=== PATIENT | female | born 2005 | race Two or more races ===

== ENCOUNTER 2025-04-26 10:46 | Outpatient (AMB) | payer MEDICAID, SELFPAY ==
[2025-04-26 11:20] VITALS: BP 104/69; PULSE 63; RESP 14; TEMP 36.6; O2SAT 98; BMI 19.8
--- NOTE | 2025-04-26 11:20 | AMB.OBINITIA ---
Vital Signs 04/26/25 11:20 Height 1.66 m Height Method Stated Weight 54.601 kg Weight Measurement Method Standing Scale BMI 19.8 BP 104/69 Blood Pressure Source Automatic Cuff Blood Pressure Location Left Upper Arm Position Sitting Respiration 14 Pulse 63 Pulse Source Monitor Temp 97.9 F Temp Source Oral Pulse Oximetry (%) 98 Oxygen Delivery Method Room Air Allergies/Home Meds Allergies & Medications Allergies No Known Allergies Allergy (Verified 04/26/25 11:21) Medication Reconciliation ondansetron HCl 8 mg tablet 8 mg PO TID PRN nausea and vomiting #30 tabs 04/26/25 [Rx] Intake Visit Data Collection New Patient or Established: Established Patient (seen at [facility] within 3 years) Reason for Visit:: INITIAL CARE Seen by Clinical Staff ONLY (RN/MA): 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 1. Little interest or pleasure in doing things: not at all 2. Feeling down, depressed, or hopeless: not at all Total score: 0 PHQ-9 3. Trouble falling or staying asleep, or sleeping too much: Not at all 4. Feeling tired or having little energy: Not at all 5. Poor appetite or overeating: Not at all 6. Feeling bad about yourself - or that you are a failure or have let yourself or your family down: Not at all 7. Trouble concentrating on things, such as reading the newspaper or watching television: Not at all 8. Moving or speaking so slowly that other people could have noticed? - Or the opposite - being so fidgety or restless that you have been moving around a lot more than usual: not at all 9. Thoughts that you would be better off or of hurting yourself in some way: Not at all Total score: 0 Source: Developed by Drs. Junito Savage, Tiffany Green, Cade Rodriguez and colleagues, with an educational deni from [employer]. Depression screen completed yes Social History Living Situation History Marital Status: Life Partner Lives With: Family Housing: House Tobacco History Smoking Status: Never smoker Second Hand Smoke Exposure: No Alcohol History Alcohol Intake: Never Domestic Abuse History Do You Feel Safe at Home: Yes History of Present Illness HPI Narrative 19-year-old 1 para 0 for OBI. Patient has an initial appointment. Tracey. Labs. January 10, 2025. Patient also reported that she had 2 days of spotting January 28. Her due date is October 17, 2025. Complains of increased nausea and vomiting. Denies bleeding, leaking. Denies existence of chronic medical health issues. Denies surgeries. Denies social habits. Patient is here with her . Both patient and are very excited. 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 Last period January 10, 2025. This gives EDC October 17, 2025. Patient had spotting for 2 days January 28. Complains of increased nausea and vomiting. She is taking vitamins. Patient denies leaking, denies bleeding, denies cramps OBI today. Schedule appointment with Dr. Polo for MFM sono. OB panel with NIPT and AFP carrier screens today. I gave her prescription for Zofran 8 mg 3 times daily and a couple refills. And discussed comfort measures for nausea and vomiting and patient can continue prenatals. Discussed SAB precautions. Menstrual History Menstrual reliability: definite Flow: heavy Menstrual regularity: irregular Monthly: No Age at menarche: 13 On control pills at conception: No Date of positive home test: 03/17/25 Associated symptoms (LMP): Reports fatigue and breast tenderness OB History : 1 # of Living Children: 0 Infection History & Risk Evaluation History of STDs: none Genetic Screening & History Genetic Screening/Teratology Counseling - Includes patient, baby's father, or anyone in either family with: 1. Patient's age 35 years or older as of estimated date of delivery: No 2. Thalassemia (Gibraltarian, Arabic, Mediterranean, or Background); MCV less than 80: No 3. Neural Tube Defect (Meningomyelocele, Spina Bifida, or Anencephaly): No 4. Congenital Heart Defect: No 5. Down Syndrome: No 6. Krishna-Sachs (Ashkenazi Evangelical, Cajun, Mongolian Citizen Of [place]): No 7. Jasmyne Disease (Ashkenazi Evangelical): No 8. Familial Dysautonomia (Ashkenazi Evangelical): No 9. Sickle Cell Disease or Trait (): No 10. Hemophilia or other blood disorders: No 11. Muscular Dystrophy: No 12. Cystic Fibrosis: No 13. Vadim's Chorea: No 14. Mental Retardation/Autism: No 15. Other inherited genetic or chromosomal disorder: No 16. Maternal Metabolic Disorder (EG,TYPE 1 Diabetes, PKU): No 17. Patient or baby's father had a child with defects not listed above: No 18. Recurrent loss or a stillbirth: No 19. Medications (including supplements, vitamins, herbs or otc drugs)/illicit/recreational drugs/alcohol since last menstrual period: No 20. Any other: No Infection History 1. Live with someone with TB or exposed to TB: No 2. Rash or viral illness since last menstrual period: No 3. Hepatitis B,C: No Other (see comments) Source: [employer] Review of Systems Review of Systems Systems Reviewed: All systems reviewed, normal except as documented Constitutional Constitutional: Reports fatigue Endocrine Endocrine: Reports fatigue Exam General Limitations: no limitations General Appearance: alert, in no apparent distress, comfortable, cooperative, healthy appearing, well developed and well groomed Head Head exam: atraumatic, normocephalic and normal inspection Chest Chest inspection: Present normal inspection and symmetric chest wall rise Resp Respiratory exam: Present normal lung sounds bilaterally Card Cardiovascular exam: Present regular rate, normal rhythm and normal heart sounds Abdominal Abdominal exam: Present soft and normal bowel sounds Psych Psychiatric exam: Present normal affect and normal mood Office Procedures OB Clinic LOC & Office Proc's Nursing/Assessment Patient Status: Established Patient OB Clinic Nursing Assessment: Medication Reconciliation, Update PMH in EMR and Vital Signs OB Clinic Coordination of Care: Complex Care and Chronic Disease 1-5, Consent,records obtained, informed consent, Education Simp Pt/Fam, Lab and Imaging orders, Results/Orders obtained and Staff clarify orders Special Needs: Heart tones Established Patient Charge Established Patient Point Assignment: 135 Established Patient Point Charge: EP Level 4 (120-155) Assessment & Plan Diagnosis / Problem List (1) Encounter for supervision of high risk in second trimester, antepartum: Status: Acute Plan Continue vitamins. I gave patient prescription for Zofran 8 mg 3 times daily for nausea and vomiting. Discussed comfort measures. Discussed SAB precautions. Schedule with Dr. Polo for [facility] ana. An OB panel today with NIPT, AFP and carrier screening. Return in 4 weeks OB check Additional Plan Follow Up: 4 Weeks (OBC)
== END 2025-04-26 11:37 | disposition home or self-care (01) ==
LOC: HODSOBC 10:46
PROVIDERS: Supervising Provider Advanced Practice Midwife; Visit Provider Advanced Practice Midwife
DX: O09.892 Supervision of other high risk pregnancies, second trimester (principal); O21.9 Vomiting of pregnancy, unspecified; Z3A.15 15 weeks gestation of pregnancy
CPT/HCPCS: 99214; G0463

== ENCOUNTER 2025-05-29 09:29 | Outpatient (AMB) | payer MEDICAID, SELFPAY ==
[2025-05-29 10:09] VITALS: BP 107/72; PULSE 76; RESP 17; TEMP 36.7; O2SAT 98
--- NOTE | 2025-05-29 10:09 | OBCLNT_ITS ---
Vital Signs 05/29/25 10:09 Height 1.66 m Height Method Measured Weight 55.338 kg Weight Measurement Method Standing Scale BMI 20.0 BP 107/72 Blood Pressure Source Automatic Cuff Blood Pressure Location Right Upper Arm Position Sitting Respiration 17 Pulse 76 Pulse Source Monitor Temp 98.0 F Temp Source Temporal Artery Scan Pulse Oximetry (%) 98 Oxygen Delivery Method Room Air Allergies/Home Meds Allergies & Medications Allergies No Known Allergies Allergy (Verified 04/26/25 11:21) Intake Visit Data Collection New Patient or Established: Established Patient (seen at [facility] within 3 years) Reason for Visit:: OBC FOLLOW UP Handbag Parts Cutter Required: No Do You Feel Safe at Home: Yes Authorities Contacted: N/A PCP or OBGYN visit in last 3 months: Yes Pain Present Currently: No Smoking Status Smoking Status: Never smoker Questionnaires PHQ-9 PHQ-2 Over the last 2 weeks, how often have you been bothered by any of the following problems? 1. Little interest or pleasure in doing things: not at all PHQ-9 8. Moving or speaking so slowly that other people could have noticed? - Or the opposite - being so fidgety or restless that you have been moving around a lot more than usual: not at all Source: Developed by Drs. Junito Savage, Tiffany Green, Cade Rodriguez and colleagues, with an educational deni from [employer]. 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 Last period January 10, 2025. This gives EDC October 17, 2025. Patient had spotting for 2 days January 28. Complains of increased nausea and vomiting. She is taking vitamins. Patient denies leaking, denies bleeding, denies cramps OBI today. Derrick love appointment with Dr. Polo for MFM ana. OB panel with NIPT and AFP carrier screens today. I gave her prescription for Zofran 8 mg 3 times daily and a couple refills. And discussed comfort measures for nausea and vomiting and patient can continue prenatals. Discussed SAB precautions. 05/29/25 -?--?-?-?-?-?-?-?-?-?-?-?- 19w 6d 55.338 kg 107/72 absent unknown 18 145 active light FM, denies VB,LOF, No UC. continued Nausea, need refill aFP today. MFM pending. Discussed SAB precautions. Return in 4 weeks OB check. Refilled Zofran. Continue with prenatals BHUMI Calculator Estimated Delivery Date Method Current WG Current Estimate 10/17/25 LMP (Certain) 19w 6d Notes Visit Date: 05/29/25 Last Updated by: Ritu Crawford CNM OB panel: O+,abs-, rpr;;nr, rub imm, hbsag-, HV-, HC-, GC/CT-, ,SMA-, A1: 5.5, NIPT: BOY/-, Cf- Visit Date: 04/26/25 Last Updated by: Ritu Crawford CNM 19 yo . LMP: 01/10/25. EDC: 10/17/24GC/CT-,, TSH-,A1: 5.4 Office Procedures OB Clinic LOC & Office Proc's Nursing/Assessment Patient Status: Established Patient OB Clinic Nursing Assessment: Medication Reconciliation, Update PMH in EMR and Vital Signs OB Clinic Coordination of Care: Complex Care and Chronic Disease 1-5, Education Complex Pt/Fam, Consent,records obtained, informed consent, 1 Ins Authorization, Lab and Imaging orders and Results/Orders obtained Special Needs: Heart tones Established Patient Charge Established Patient Point Assignment: 145 Established Patient Point Charge: EP Level 4 (120-155) Assessment & Plan Diagnosis / Problem List (1) Encounter for supervision of high risk in second trimester, antepartum: Status: Acute Plan Discussed SAB precautions. aFP today. Follow-up in [facility] sono. Refill Zofran 8 mg every 8. Discussed comfort measures for nausea and vomiting. Return in 4 weeks OB check Additional Plan Follow Up: 4 Weeks (OBC)
== END 2025-05-29 10:30 | disposition home or self-care (01) ==
LOC: HODSOBC 09:29
PROVIDERS: Supervising Provider Advanced Practice Midwife; Visit Provider Advanced Practice Midwife
DX: O09.92 Supervision of high risk pregnancy, unspecified, second trimester (principal); Z3A.19 19 weeks gestation of pregnancy
CPT/HCPCS: 99214; G0463

== ENCOUNTER 2025-06-13 18:58 | Emergency (ER) | payer MEDICAID, SELFPAY ==
--- NOTE | 2025-06-13 19:07 | EDNOTE_ITS ---
ED Abdominal Pain RME/HPI General Chief Complaint: OB/Uterine Contractions Stated complaint: PREG 17WKS, LOWER ABD PAIN Time seen by provider: 06/13/25 19:31 Arrival date/time: 06/13/25 18:58 RME / HPI RME / HPI narrative: See [facility] for Dr. Mondragon's HPI documentation. Related Data Previous Rx's ?Medication ?Instructions ?Recorded ondansetron HCl 8 mg tablet 8 mg PO TID PRN nausea and 05/29/25 vomiting #30 tabs Allergies Allergy/AdvReac Type Severity Reaction Status Date / Time No Known Allergies Allergy Verified 06/13/25 19:03 Review of Systems Review of Systems Systems Reviewed: All systems reviewed, normal except as documented Past Medical History Past Medical History CARDIAC: Negative Congestive Heart Failure RESPIRATORY: Negative Chronic Obstructive Pulmonary Disease (COPD) GENITOURINARY: Negative Renal Disease ENDOCRINE: Negative Diabetes Mellitus Type 1 or Diabetes Mellitus Type 2 PSYCHO/SOCIAL: Positive Anxiety Social History SMOKING STATUS: Never smoker SECOND HAND EXPOSURE: No SUBSTANCE USE: does not use ED Exam Narrative Physical exam: See [facility] for Dr. Mondragon's physical exam documentation. Course Quality Measures none Orders Category Date Time Status Bedside COVID-19 Antigen Test NOW Care 06/13/25 19:31 Completed Bedside Influenza A&B Antigen Test NOW Care 06/13/25 19:31 Completed US OB >= 14 weeks Fetus Stat Exams 06/13/25 19:32 Completed Beta HCG,Quantitative Stat Lab 06/13/25 19:50 Completed Bilirubin,Direct Stat Lab 06/13/25 19:50 Completed CBC Stat Lab 06/13/25 19:50 Completed CMP [Comprehensive Metabolic Panel] Stat Lab 06/13/25 19:50 Completed Influenza A & B Rapid Panel Stat Lab 06/13/25 20:18 Completed Magnesium Stat Lab 06/13/25 19:50 Completed Rh Testing Only Stat Lab 06/13/25 19:50 Completed TSH [Thyroid Stimulating Hormone] Stat Lab 06/13/25 19:50 Completed UA, C/S IF [Urinalysis, C/S if Indicated] Stat Lab 06/13/25 20:41 Completed Ondansetron Odt [Zofran Odt] Med 06/13/25 19:31 Discontinued 4 mg PO X1 ONE Vital Signs Vital signs: Vital Signs Temperature 98.6 F 06/13/25 19:52 Pulse Rate 64 06/13/25 19:52 Respiratory Rate 16 06/13/25 19:52 Blood Pressure 109/79 06/13/25 19:52 Pulse Oximetry (%) 96 06/13/25 19:52 Oxygen Delivery Method Room Air 06/13/25 19:52 Abdominal Pain MDM MDM Narrative MDM Narrative:: This section includes all my notes and documentations, including HPI, PE, and ED course. Cricket Mondragon MD HPI: 19yo female who is ~17 weeks here with lower abdominal pain and nausea for the last 24 hours. No radiation or migration. No vomiting or vaginal bleeding. No other complaints reported. ROS: All negative except as documented in HPI. Physical Exam: General: Alert and oriented. No acute distress when remaining still. Eyes: Conjunctivae and lids clear. ENT: No nasal congestion. Neck: Supple. Heart: RRR. Lungs: No respiratory distress. Good air movement. No rhonchi, wheezing, rales. Abdomen: Soft and nontender. Normal bowel sounds. No distension. No rebound or guarding. Back: No CVA tenderness. Skin: Warm and dry. Neuro: Alert and oriented X 3. I reviewed all diagnostic test results. My review of the US report is 18 4/7 week IUP. Blood tests and urine tests remarkable for beta-hCG 81443. COVID/Influenza negative. At this point, diagnoses include: Threatened miscarriage Treatment here included: Tono Recommended expectant management. Based on my best medical judgment, made decision no further evaluation or treatment indicated at this time. Patient understands and agrees to the discharge instructions customized and printed, see below. Discharge Instructions from Dr. Mondragon printed for you: 1. After evaluation, your baby is doing well with good cardiac activity. 2. Based on ultrasound today, gestational age is 18 4/7 weeks. 3. Only time will tell what will happen. If your symptoms, including bleeding, worsen, you can have a miscarriage. If your symptoms stop, you can have successful . 4. If you do have a miscarriage, we won't be able to save your baby. Under 20-24 weeks, we can't save the baby. 5. No sexual activity until cleared by a doctor taking care of you. 6. See a private doctor on 06/25/2025 for recheck. Ask to review all test results and official radiology reports, to make sure you receive all necessary follow-ups and monitoring. 7. Seek immediate medical care with intolerable pain, extremely heavy vaginal bleeding (soaking more than 3 pads per hour), or with any concerns. Cricket Mondragon MD Patient data External records reviewed:: [facility] previous records (Per chart review, patient has no relevant previous ED visits.) Clinical information provided by:: patient Social determinants that could affect healthcare access:: none Patient has the following chronic illnesses:: none How is presenting disease/condition affected by chronic disease/condition?: no chronic disease Evaluation data The following diagnostics were reviewed and interpreted by me:: lab results and radiology exam(s) Lab and/or radiology exams considered but not ordered:: none Interpretation Summary: I reviewed all diagnostic test results. My review of the US report is 18 4/7 week IUP. Blood tests and urine tests remarkable for beta-hCG 72587. COVID/Influenza negative. Medications / Prescriptions Medications or Prescriptions considered but not ordered:: none Medication administrations:: Medication Administration History Discontinued Medications Ondansetron HCl (Ondansetron Odt 4 Mg Tabrap) 4 mg PO X1 ONE; Protocol Stop: 06/13/25 19:32 Last Admin: 06/13/25 19:59 Dose: 4 mg Documented By: NATIVIDAD Power Consultations Consultation(s) initiated? (list below): No Diagnosis Differential diagnosis abdominal pain: other (abdominal pain in , threatened miscarriage, UTI) Most likely diagnosis given after review of the tests above:: Threatened miscarriage Admission Indicated Admission indicated?: not indicated Explain why admission is indicated or not indicated:: With no condition needing emergent intervention, there was no indication for admission. Admission Request Was there a request for admission?: No Disposition Plan Disposition Plan: Discharge Discharge Attestation Discharge Attestation: The patient and all family members were given an opportunity to ask questions and understood the discharge instructions. Discharge instructions specifically effects, indications for sooner follow up or return to the emergency department, and the expected course of current diagnosis. Patient condition: Stable Discharge Plan Plan Patient Disposition: HOME (Self Care) Prescriptions/Referrals Prescriptions/Med Rec: No Action ondansetron HCl 8 mg tablet 8 mg PO TID PRN (Reason: nausea and vomiting) Qty: 30 2RF Referrals: No Primary/Family,Physician [Primary Care Provider] - In 1 week Problem List Clinical Impression: Threatened miscarriage Patient/Caregiver Discharge Instructions Discharge Activity: activity as tolerated Education Materials: ED Possible Miscarriage ... Additional Instructions: Discharge Instructions from Dr. Mondragon printed for you: 1.? After evaluation, your baby is doing well with good cardiac activity. 2.? Based on ultrasound today, gestational age is 18 4/7 weeks. 3.? Only time will tell what will happen. If your symptoms, including bleeding, worsen, you can have a miscarriage. If your symptoms stop, you can have successful . 4.? If you do have a miscarriage, we won't be able to save your baby. Under 20-24 weeks, we can't save the baby. 5.? No sexual activity until cleared by a doctor taking care of you. 6.? See a private doctor on 06/25/2025 for recheck. Ask to review all test results and official radiology reports, to make sure you receive all necessary follow-ups and monitoring. 7.? Seek immediate medical care with intolerable pain, extremely heavy vaginal bleeding (soaking more than 3 pads per hour), or with any concerns. Instrucciones de jose luis de la Dra. Mondragon impresas para usted: 1. Despu?s de la evaluaci?n, olea beb? se encuentra reginaldo y presenta buena actividad card?padmini. 2. Seg?n la ecograf?a de hoy, la edad gestacional es de 18 4/7 semanas. 3. Solo el tiempo dir? qu? suceder?. Si fili s?ntomas, incluyendo el sangrado, empeoran, podr?a sufrir un aborto espont?francisco. Si fili s?ntomas desaparecen, puede tener un embarazo exitoso. 4. Si sufre un aborto espont?francisco, no podremos salvar a olea beb?. Con menos de 20 a 24 semanas, no podremos salvarlo. 5. No tenga relaciones sexuales hasta que el m?dico que la atienda le d? el jose luis. 6. Consulte con un m?dico privado el 25/06/2025 para landry nueva revisi?n. Solicite la revisi?n de todos los resultados de las pruebas y los informes radiol?gicos oficiales para asegurarse de recibir todos los seguimientos y monitoreos necesarios. 7. Busque atenci?n m?dica inmediata si tiene dolor intolerable, sangrado vaginal extremadamente abundante (que empape m?s de 3 toallas sanitarias por hora) o si tiene alguna inquietud. Print Language: Citizen Of [place] Stand Alone Forms: Beatriz Award Info., Patient Portal Info Letter
--- NOTE | 2025-06-13 19:32 | XR_ITS ---
Examination: Complete OB ultrasound greater than 14 weeks Date and time of exam: June 13, 2025, 2010 hours INDICATIONS: Onset pelvic cramping today Findings: Viable intrauterine single fetus with single amniotic sac presentation cephalic Cardiac motion 147 bpm. Placenta posterior grade 1. Umbilical cord insertion 3 vessels seen. Amniotic fluid index adequate spine maternal left Cervix 3.3 cm Ovaries obscured by bowel gas. Composite estimated gestational age based on BPD, head circumference, abdominal circumference, femur length is 18 weeks 4 days Estimated weight 230 g. Survey of intracranial anatomy, spinal anatomy, abdominal anatomy, four-chamber heart performed with no abnormalities identified. Impression: Viable intrauterine gestation in cephalic presentation.
[2025-06-13 19:52] VITALS: BP 109/79; PULSE 64; RESP 16; TEMP 37; O2SAT 96; BMI 19.8
[2025-06-13] MEDS: ONDANSETRON ODT 4 MG TABRAP PO (19:59)
[2025-06-13 20:04] LABS: Basophils # (Auto) 0.0 Thou/mm3 (0.0-0.2); Basophils % (Auto) 0 % (0-2.5); Eosinophils # (Auto) 0.1 Thou/mm3 (0.0-0.5); Eosinophils % (Auto) 1 % (0-10); Hematocrit 34.6 % (36.0-46.0); Hemoglobin 11.7 g/dL (12.0-16.0); Immature Granulocytes Auto 0.03 Thou/mm3 (0.00-0.00); Lymphocytes # (Auto) 2.3 Thou/mm3 (1.0-4.8); Lymphocytes % (Auto) 28 % (10-50); Mean Corpuscular HGB Conc 33.8 g/dl (31.0-37.0); Mean Corpuscular Hemoglobin 31.4 pg (25.0-35.0); Mean Corpuscular Volume 93 fL (80-100); Monocytes # (Auto) 0.5 Thou/mm3 (0.0-0.8); Monocytes % (Auto) 6 % (0-12); Neutrophils # (Auto) 5.5 Thou/mm3 (1.8-7.7); Neutrophils % (Auto) 65 % (37-80); Nucleated Red Blood Cell # 0.00 Thou/mm3 (0.00-0.00); Nucleated Red Blood Cell % 0 /100 WBC (0); Platelet Count 175 Thou/mm3 (140-440); RDW Standard Deviation 43.4 fL (36.4-46.3); Red Blood Count 3.73 Miln/mm3 (4.00-5.20); White Blood Count 8.5 Thou/mm3 (4.5-11.0)
[2025-06-13 20:38] LABS: Alanine Aminotransferase 12 U/L (10-49); Albumin, Serum 4.3 gm/dL (3.5-5.0); Albumin/Globulin Ratio 1.6 (1.2-2.2); Alkaline Phosphatase 50 U/L (46-116); Anion Gap 10 (7-16); Aspartate Amino Transferase 21 U/L (0-34); BUN/Creatinine Ratio 8 Ratio (12-20); Bilirubin,Direct 0.1 mg/dL (0.0-0.3); Bilirubin,Total 0.6 mg/dL (0.3-1.2); Blood Urea Nitrogen < 5 mg/dL (9-23); Calcium 9.5 mg/dL (8.3-10.6); Calcium (Corrected) 9.5 mg/dL (8.5-10.1); Carbon Dioxide 23.4 mMol/L (20.0-31.0); Chloride 104 mMol/L (98-107); Creatinine (Component) 0.6 mg/dL (0.6-1.3); Estimated Creatinine Clearance 131.9 mL/min (>60); Globulin 2.7 gm/dL (2.3-3.5); Glucose 80 mg/dL (74-106); Magnesium 2.0 mg/dL (1.6-2.6); Osmolality,Calculated 270 (275-295); Potassium 3.9 mMol/L (3.4-5.1); Sodium 137 mMol/L (136-145); Thyroid Stimulating Hormone 1.68 uIU/mL (0.55-4.78); Total Protein 7.0 gm/dL (5.7-8.2); eGFR > 60 See Note
[2025-06-13 20:50] LABS: Collection Type, Urine Clean Catch; RBC,Urine 0 /hpf (0-3); WBC,Urine 0 /hpf (0-5)
[2025-06-13 20:54] LABS: Influenza A Ag Negative; Influenza B Ag Negative
[2025-06-13 21:11] LABS: Amorphous Crystals,Urine Present (Absent); Bilirubin,Urine Negative (Negative); Blood,Urine Negative (Negative); Color,Urine Yellow (Lt Yel-Yel); Culture Indicated,Urine Not Indicated; Glucose, Urine Negative (Negative); Ketones,Urine Negative (Negative); Leukocyte Esterase,Urine Negative (Negative); Nitrite,Urine Negative (Negative); PH,Urine 8.0 (5.0-7.0); Protein,Urine Trace (Neg - Trace); Specific Gravity,Urine 1.018 (1.001-1.035); Squamous Epithelial Cell,Urine 1 /hpf (0-5); Urobilinogen,Urine Negative mg/dL (0.0-1.0)
[2025-06-13 21:12] LABS: Beta HCG,Quantitative 15214 mIU/mL (<5.0)
[2025-06-13 21:13] LABS: Clarity,Urine Turbid (Clear/Hazy)
== END 2025-06-13 21:29 | disposition home or self-care (01) ==
PROVIDERS: Emergency Provider Emergency Medicine
DX: O20.0 Threatened abortion (principal); Z3A.18 18 weeks gestation of pregnancy
CPT/HCPCS: 36415; 76805; 80053; 81001; 82248; 83735; 84443; 84702; 85025; 86901; 87502; 87811; 99284; Q0162

== ENCOUNTER 2025-06-15 09:47 | Outpatient (AMB) | payer MEDICAID, SELFPAY ==
[2025-06-15 09:52] VITALS: BP 109/72; PULSE 70; RESP 17; TEMP 36.6; O2SAT 98; BMI 19.9
--- NOTE | 2025-06-15 09:52 | AMB.OBVISIT ---
Vital Signs 06/15/25 09:52 Height 1.68 m Height Method Stated Weight 56.245 kg Weight Measurement Method Standing Scale BMI 19.9 BP 109/72 Blood Pressure Source Automatic Cuff Blood Pressure Location Right Upper Arm Position Sitting Respiration 17 Pulse 70 Pulse Source Monitor Temp 97.9 F Temp Source Temporal Artery Scan Pulse Oximetry (%) 98 Oxygen Delivery Method Room Air Allergies/Home Meds Allergies & Medications Allergies No Known Allergies Allergy (Verified 06/15/25 09:54) Medication Reconciliation ondansetron HCl 8 mg tablet 8 mg PO TID PRN nausea and vomiting #30 tabs 05/29/25 [Rx Confirmed 06/15/25] ascorbic acid (vitamin C) 500 mg capsule 500 mg PO BID #60 caps 06/15/25 [Rx] ferrous sulfate 325 mg (65 mg iron) tablet 325 mg PO BID #60 tabs 06/15/25 [Rx] Intake Visit Data Collection New Patient or Established: Established Patient (seen at [facility] within 3 years) Reason for Visit:: OBC / ER FOLLOW UP Seen by Clinical Staff ONLY (RN/MA): No 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 1. Little interest or pleasure in doing things: not at all 2. Feeling down, depressed, or hopeless: not at all Total score: 0 PHQ-9 3. Trouble falling or staying asleep, or sleeping too much: Not at all 4. Feeling tired or having little energy: Not at all 5. Poor appetite or overeating: Not at all 6. Feeling bad about yourself - or that you are a failure or have let yourself or your family down: Not at all 7. Trouble concentrating on things, such as reading the newspaper or watching television: Not at all 8. Moving or speaking so slowly that other people could have noticed? - Or the opposite - being so fidgety or restless that you have been moving around a lot more than usual: not at all 9. Thoughts that you would be better off or of hurting yourself in some way: Not at all Total score: 0 If you checked off any problems, how difficult have these problems made it for you to do your work, take care of things at home, or get along with other people?: not difficult at all Source: Developed by Drs. Junito Savage, Tiffany Green, Cade Rodriguez and colleagues, with an educational deni from [employer]. Depression screen completed yes Social History Living Situation History Marital Status: Life Partner Lives With: Family Housing: House Tobacco History Smoking Status: Never smoker Second Hand Smoke Exposure: No Alcohol History Alcohol Intake: Never Domestic Abuse History Do You Feel Safe at Home: Yes [employer]: Past Medical History Past Medical History: No Hx Renal Disease, No Hx Diabetes Mellitus Type 1 and No Hx Diabetes Mellitus Type 2 Care OB Visit Log OB Flowsheet Initial Weight: Not Recorded Date <del>?</del> EGA Weight BP Alb Glu CTX Pres Fundal ht FHR Mov Dilation Station Effacement Hx Notes Visit Note 04/26/25 <del>?</del> 11w 5d 54.601 kg 104/69 absent unknown 15 145 absent 19-year-old 1 para 0 for OBI. Last period January 10, 2025. This gives EDC October 17, 2025. Patient had spotting for 2 days January 28. Complains of increased nausea and vomiting. She is taking vitamins. Patient denies leaking, denies bleeding, denies cramps OBI today. Schedule appointment with Dr. Polo for MFM sono. OB panel with NIPT and AFP carrier screens today. I gave her prescription for Zofran 8 mg 3 times daily and a couple refills. And discussed comfort measures for nausea and vomiting and patient can continue prenatals. Discussed SAB precautions. 05/29/25 <del>?</del> 16w 3d 55.338 kg 107/72 absent unknown 18 145 active light FM, denies VB,LOF, No UC. continued Nausea, need refill aFP today. MFM pending. Discussed SAB precautions. Return in 4 weeks OB check. Refilled Zofran. Continue with prenatals 06/15/25 <del>?</del> 18w 6d 56.245 kg 109/72 absent unknown 18 145 active Of 34. Urine was clear and CHEM panel was normal. Sonogram showed a 18-week fetus on June 13. This corrects EDC to November 09, 2024 Discussed dates. MFM sono. Pending ETA every 2 hours. Increase proteins and increase iron foods. I gave her prescription for iron twice a day with vitamin C twice a day. Increase fluids. And return in 4 weeks OB check. AFP today BHUMI Calculator Estimated Delivery Date Method Current WG Current Estimate 11/10/25 Ultrasound #1 18w 6d Other Estimates 10/17/25 LMP (Certain) 22w 2d 11/10/25 Manual 18w 6d final bhumi: 11/10/25 Notes Visit Date: 06/15/25 Last Updated by: Ritu Crawford CNM 06/13: sono showed IUP 18w4. CEDC: 11/10/25 Visit Date: 05/29/25 Last Updated by: Ritu Crawford CNM OB panel: O+,abs-, rpr;;nr, rub imm, hbsag-, HV-, HC-, GC/CT-, /184,SMA-, A1: 5.5, NIPT: BOY/-, Cf- Visit Date: 04/26/25 Last Updated by: Ritu Crawford CNM 19 yo . LMP: 01/10/25. EDC: 10/17/24GC/CT-,, TSH-,A1: 5.4 Office Procedures OBC Clinic LOC & Office Proc's Nursing/Assessment Patient Status: Established Patient OB Clinic Nursing Assessment: Medication Reconciliation, Update PMH in EMR and Vital Signs OB Clinic Coordination of Care: Complex Care and Chronic Disease 1-5, Education Complex Pt/Fam, Consent,records obtained, informed consent, Lab and Imaging orders, Results/Orders obtained and Staff clarify orders Special Needs: Heart tones Established Patient Charge Established Patient Point Assignment: 140 Established Patient Point Charge: EP Level 4 (120-155) Assessment & Plan Diagnosis / Problem List (1) Encounter for supervision of high risk in second trimester, antepartum: Status: Acute Plan Start iron twice daily. With vitamin C. Discussed increasing iron foods. Increase proteins. Small frequent meals every 2 hours. Increase fluids. Discussed labor precautions. And follow-up for maternal- medicine sono. Return in 4 weeks OB Additional Plan Follow Up: 4 Weeks (obc)
== END 2025-06-15 10:19 | disposition home or self-care (01) ==
LOC: HODSOBC 09:47
PROVIDERS: Supervising Provider Advanced Practice Midwife; Visit Provider Advanced Practice Midwife
DX: O09.92 Supervision of high risk pregnancy, unspecified, second trimester (principal); Z3A.18 18 weeks gestation of pregnancy
CPT/HCPCS: 99214; G0463

== ENCOUNTER 2025-06-28 13:54 | Outpatient (AMB) | payer MEDICAID, SELFPAY ==
[2025-06-28 13:56] VITALS: BP 108/69; PULSE 79; RESP 18; TEMP 36.2; O2SAT 98; BMI 20.9
--- NOTE | 2025-06-28 13:56 | AMB.OBVISIT ---
Vital Signs 06/28/25 13:56 Height 1.68 m Height Method Stated Weight 59.137 kg Weight Measurement Method Standing Scale BMI 20.9 BP 108/69 Blood Pressure Source Automatic Cuff Blood Pressure Location Left Upper Arm Position Sitting Respiration 18 Pulse 79 Pulse Source Monitor Temp 97.2 F Temp Source Oral Pulse Oximetry (%) 98 Oxygen Delivery Method Room Air Allergies/Home Meds Allergies & Medications Allergies No Known Allergies Allergy (Verified 06/28/25 13:56) Medication Reconciliation ondansetron HCl 8 mg tablet 8 mg PO TID PRN nausea and vomiting #30 tabs 05/29/25 [Rx Confirmed 06/28/25] ascorbic acid (vitamin C) 500 mg capsule 500 mg PO BID #60 caps 06/15/25 [Rx Confirmed 06/28/25] ferrous sulfate 325 mg (65 mg iron) tablet 325 mg PO BID #60 tabs 06/15/25 [Rx Confirmed 06/28/25] Intake Visit Data Collection New Patient or Established: Established Patient (seen at [facility] within 3 years) Reason for Visit:: OBC Seen by Clinical Staff ONLY (RN/MA): No Fertilizing Machine Operator Required: No Do You Feel Safe at Home: Yes Authorities Contacted: N/A PCP or OBGYN visit in last 3 months: Yes Date of Last PCP or OBGYN visit: 06/15/25 Hx Now: Yes Are you currently on any form of Control: No Pain Present Currently: No Pain Scale Used: Rivas-Bell/Numerical Pain scale:: 0 Smoking Status Smoking Status: Never smoker Immunizations Flu Vaccine in the Last 12 Months: No Flu Vaccine Exclusion Criteria: No Exclusion Criteria Questionnaires Covid-19 Vaccine Questionnaire Has patient been vacinated for Covid-19 Have you been vacinated for Covid-19: No PHQ-9 PHQ-2 Over the last 2 weeks, how often have you been bothered by any of the following problems? 1. Little interest or pleasure in doing things: not at all 2. Feeling down, depressed, or hopeless: not at all Total score: 0 PHQ-9 3. Trouble falling or staying asleep, or sleeping too much: Not at all 4. Feeling tired or having little energy: Not at all 5. Poor appetite or overeating: Not at all 6. Feeling bad about yourself - or that you are a failure or have let yourself or your family down: Not at all 7. Trouble concentrating on things, such as reading the newspaper or watching television: Not at all 8. Moving or speaking so slowly that other people could have noticed? - Or the opposite - being so fidgety or restless that you have been moving around a lot more than usual: not at all 9. Thoughts that you would be better off or of hurting yourself in some way: Not at all Total score: 0 If you checked off any problems, how difficult have these problems made it for you to do your work, take care of things at home, or get along with other people?: not difficult at all Source: Developed by Drs. Junito Savage, Tiffany Green, Cade Rodriguez and colleagues, with an educational deni from [employer]. 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 Last period January 10, 2025. This gives EDC October 17, 2025. Patient had spotting for 2 days January 28. Complains of increased nausea and vomiting. She is taking vitamins. Patient denies leaking, denies bleeding, denies cramps OBI today. Schedule appointment with Dr. Polo for MFGrace perez. OB panel with NIPT and AFP carrier screens today. I gave her prescription for Zofran 8 mg 3 times daily and a couple refills. And discussed comfort measures for nausea and vomiting and patient can continue prenatals. Discussed SAB precautions. 05/29/25 <del>?</del> 16w 3d 55.338 kg 107/72 absent unknown 18 145 active light FM, denies VB,LOF, No UC. continued Nausea, need refill aFP today. MFM pending. Discussed SAB precautions. Return in 4 weeks OB check. Refilled Zofran. Continue with prenatals 06/15/25 <del>?</del> 18w 6d 56.245 kg 109/72 absent unknown 18 145 active Of 34. Urine was clear and CHEM panel was normal. Sonogram showed a 18-week fetus on June 13. This corrects EDC to November 09, 2024 Discussed dates. MFM sono. Pending ETA every 2 hours. Increase proteins and increase iron foods. I gave her prescription for iron twice a day with vitamin C twice a day. Increase fluids. And return in 4 weeks OB check. AFP today 06/28/25 <del>?</del> 20w 5d 59.137 kg 108/69 absent unknown 20 156 active Maternal- medicine sono was faxed to Dr. Polo. Discussed dates. Discussed AFP. Patient reports light movement. Denies leaking, bleeding, cramps Maternal- medicine sono pending approval. Discussed labor precautions. Continue prenatals. Discussed labs. Return in 4 weeks OB check BHUMI Calculator Estimated Delivery Date Method Current WG Current Estimate 11/10/25 Ultrasound #1 20w 5d Other Estimates 10/17/25 LMP (Certain) 24w 1d 11/10/25 Manual 20w 5d final bhumi: 11/10/25 Notes Visit Date: 06/28/25 Last Updated by: Ritu Crawford CNM 06/28: AFP- Visit Date: 06/15/25 Last Updated by: Ritu Crawford CNM 06/13: sono showed IUP 18w4. CEDC: 11/10/25 Visit Date: 05/29/25 Last Updated by: Ritu Crawford CNM OB panel: O+,abs-, rpr;;nr, rub imm, hbsag-, HV-, HC-, GC/CT-, /,SMA-, A1: 5.5, NIPT: BOY/-, Cf- Visit Date: 04/26/25 Last Updated by: Ritu Crawford, JANINE 19 yo . LMP: 01/10/25. EDC: 10/17/24GC/CT-,, TSH-,A1: 5.4 Office Procedures OBC Clinic LOC & Office Proc's Nursing/Assessment Patient Status: Established Patient OB Clinic Nursing Assessment: Medication Reconciliation, Update PMH in EMR and Vital Signs OB Clinic Coordination of Care: Consent,records obtained, informed consent, Education Simp Pt/Fam, Lab and Imaging orders, Results/Orders obtained and Staff clarify orders Special Needs: Heart tones Established Patient Charge Established Patient Point Assignment: 110 Established Patient Point Charge: EP Level 3 (80-115) Assessment & Plan Diagnosis / Problem List (1) Encounter for supervision of high risk in second trimester, antepartum: Status: Acute Plan Follow-up on maternal- medicine sono. Discussed labor precautions. Continue prenatals. Increase fluids. Return in 4 weeks OB check Additional Plan Follow Up: 4 Weeks (OBc)
== END 2025-06-28 14:33 | disposition home or self-care (01) ==
LOC: HODSOBC 13:54
PROVIDERS: Supervising Provider Advanced Practice Midwife; Visit Provider Advanced Practice Midwife
DX: O09.92 Supervision of high risk pregnancy, unspecified, second trimester (principal); Z3A.20 20 weeks gestation of pregnancy
CPT/HCPCS: 99213; G0463

== ENCOUNTER 2025-07-26 14:16 | Outpatient (AMB) | payer MEDICAID, SELFPAY ==
[2025-07-26 14:26] VITALS: BP 102/74; PULSE 68; RESP 14; TEMP 36.6; O2SAT 99; BMI 21.2
--- NOTE | 2025-07-26 14:26 | OBCLNT_ITS ---
Vital Signs 07/26/25 14:26 Height 1.68 m Height Method Stated Weight 59.931 kg Weight Measurement Method Standing Scale BMI 21.2 BP 102/74 Blood Pressure Source Automatic Cuff Blood Pressure Location Left Upper Arm Position Sitting Respiration 14 Pulse 68 Pulse Source Monitor Temp 98 F Temp Source Oral Pulse Oximetry (%) 99 Oxygen Delivery Method Room Air Allergies/Home Meds Allergies & Medications Allergies No Known Allergies Allergy (Verified 07/26/25 14:27) Medication Reconciliation ondansetron HCl 8 mg tablet 8 mg PO TID PRN nausea and vomiting #30 tabs 05/29/25 [Rx Confirmed 07/26/25] ascorbic acid (vitamin C) 500 mg capsule 500 mg PO BID #60 caps 06/15/25 [Rx Confirmed 07/26/25] ferrous sulfate 325 mg (65 mg iron) tablet 325 mg PO BID #60 tabs 06/15/25 [Rx Confirmed 07/26/25] Immunizations Immunizations Flu Vaccine in the Last 12 Months: No Flu Vaccine Exclusion Criteria: Refused by Patient Care OB Visit Log OB Flowsheet Initial Weight: Not Recorded Date -?-?-?-?-?-?-?-?-?-?-?-?- EGA Weight BP Alb Glu CTX Pres Fundal ht FHR Mov Dilation Station Effacement Hx Notes Visit Note 04/26/25 -?-?-?-?-?-?--?-?-?-?-?-?- 11w 5d 54.601 kg 104/69 absent unknown 15 145 absent 19-year-old 1 para 0 for OBI. Last period January 10, 2025. This gives EDC October 17, 2025. Patient had spotting for 2 days January 28. Complains of increased nausea and vomiting. She is taking vitamins. Patient denies leaking, denies bleeding, denies cramps OBI today. Sche williame appointment with Dr. Polo for MFM sono. OB panel with NIPT and AFP carrier screens today. I gave her prescription for Zofran 8 mg 3 times daily and a couple refills. And discussed comfort measures for nausea and vomiting and patient can continue prenatals. Discussed SAB precautions. 05/29/25 -?-?-?-?-?-?-?-?-?-?-?-?- 16w 3d 55.338 kg 107/72 absent unknown 18 145 active light FM, denies VB,LOF, No UC. continued Nausea, need refill aFP today. MFM pending. Discussed SAB precautions. Return in 4 weeks OB check. Refilled Zofran. Continue with prenatals 06/15/25 -?-?-?-?-?-?-?-?-?-?-?-?- 18w 6d 56.245 kg 109/72 absent unknown 18 145 active Of 34. Urine was clear and CHEM panel was normal. Sonogram showed a 18-week fetus on June 13. This corrects EDC to November 09, 2024 Discussed dates. MFM sono. Pending ETA every 2 hours. Increase proteins and increase iron foods. I gave her prescription for iron twice a day with vitamin C twice a day. Increase fluids. And return in 4 weeks OB check. AFP today 06/28/25 -?-?-?-?-?-?-?-?-?-?-?-?- 20w 5d 59.137 kg 108/69 absent unknown 20 156 active Maternal- medicine sono was faxed to Dr. Polo. Discussed dates. Discussed AFP. Patient reports light movement. Denies leaking, bleeding, cramps Maternal- medicine sono pending approval. Discussed labor precautions. Continue prenatals. Discussed labs. Return in 4 weeks OB check 07/26/25 -?-?-?-?-?-?-?-?-?-?-?-?- 24w 5d 59.931 kg 102/74 absent unknown 24 156 active No OB complaints. Reports good movement. Denies leaking, bleeding, contractions. Maternal- medicine schedule in 2 weeks. Discussed labor precautions. Ordered third trimester labs. Return in 4 weeks OB check BHUMI Calculator Estimated Delivery Date Method Current WG Current Estimate 11/10/25 Ultrasound #1 24w 5d Other Estimates 10/17/25 LMP (Certain) 28w 1d 11/10/25 Manual 24w 5d final bhumi: Notes Visit Date: 06/28/25 Last Updated by: Ritu Crawford CNM 06/28: AFP- Visit Date: 06/15/25 Last Updated by: Ritu Crawford CNM 06/13: sono showed IUP 18w4. CEDC: 11/10/25 Visit Date: 05/29/25 Last Updated by: Ritu Crawford CNM OB panel: O+,abs-, rpr;;nr, rub imm, hbsag-, HV-, HC-, GC/CT-, ,SMA-, A1: 5.5, NIPT: BOY/-, Cf- Visit Date: 04/26/25 Last Updated by: Ritu Crawford CNM 19 yo . LMP: 01/10/25. EDC: 10/17/24GC/CT-,, TSH-,A1: 5.4 Office Procedures OBC Clinic LOC & Office Proc's Nursing/Assessment Patient Status: Established Patient OB Clinic Nursing Assessment: Medication Reconciliation, Update PMH in EMR and Vital Signs OB Clinic Coordination of Care: Complex Care and Chronic Disease 1-5, Consent,records obtained, informed consent, Education Simp Pt/Fam, 1 Ins Authorization, Lab and Imaging orders, Results/Orders obtained and Staff clarify orders Special Needs: Heart tones Established Patient Charge Established Patient Point Assignment: 150 Established Patient Point Charge: EP Level 4 (120-155) Assessment & Plan Diagnosis / Problem List (1) Encounter for supervision of high risk in second trimester, antepartum: Status: Acute Plan Ordered third trimester Pap. Discussed labor precautions. Increase fluids. Return in 4 weeks OB check Additional Plan Follow Up: 4 Weeks (obc)
== END 2025-07-26 14:40 | disposition home or self-care (01) ==
LOC: HODSOBC 14:16
PROVIDERS: Supervising Provider Advanced Practice Midwife; Visit Provider Advanced Practice Midwife
DX: O09.92 Supervision of high risk pregnancy, unspecified, second trimester (principal); Z3A.24 24 weeks gestation of pregnancy; Z28.21 Immunization not carried out because of patient refusal
CPT/HCPCS: 99214; G0463

== ENCOUNTER 2025-08-23 15:44 | Outpatient (AMB) | payer MEDICAID, SELFPAY ==
[2025-08-23 15:54] VITALS: BP 108/74; PULSE 78; RESP 18; TEMP 36.6; O2SAT 98; BMI 21.9
--- NOTE | 2025-08-23 15:54 | OBCLNT_ITS ---
Vital Signs 08/23/25 15:54 Height 1.68 m Height Method Stated Weight 61.745 kg Weight Measurement Method Standing Scale BMI 21.9 BP 108/74 Blood Pressure Source Automatic Cuff Blood Pressure Location Right Upper Arm Position Sitting Respiration 18 Pulse 78 Pulse Source Monitor Temp 97.8 F Temp Source Temporal Artery Scan Pulse Oximetry (%) 98 Oxygen Delivery Method Room Air Allergies/Home Meds Allergies & Medications Allergies No Known Allergies Allergy (Verified 08/23/25 16:13) Medication Reconciliation ondansetron HCl 8 mg tablet 8 mg PO TID PRN nausea and vomiting #30 tabs 05/09 11/01 [Rx Confirmed 08/23/25] ascorbic acid (vitamin C) 500 mg capsule 500 mg PO BID #60 caps 06/15/25 [Rx Confirmed 08/23/25] ferrous sulfate 325 mg (65 mg iron) tablet 325 mg PO BID #60 tabs 06/15/25 [Rx Confirmed 08/23/25] ferrous sulfate 325 mg (65 mg iron) tablet (Iron (ferrous sulfate)) 325 mg PO BID #60 tabs 08/23/25 [Rx] vitamin-ferrous fumarate 28 mg iron-folic acid 800 mcg tablet ( Vitamins with Minerals) 1 tab PO QDAY #60 tabs 08/23/25 [Rx] Immunizations Immunizations Flu Vaccine in the Last 12 Months: Yes Flu Vaccine Exclusion Criteria: Already Received Care OB Visit Log OB Flowsheet Initial Weight: Not Recorded Date -?-?-?-?-?-?-?-?-?-?-?-?- EGA Weight BP Alb Glu CTX Pres Fundal ht FHR Mov Dilation Station Effacement Hx Notes Visit Note 04/26/25 -?-?-?-?-?-?-?-?-?-?-?-?- 11w 5d 54.601 kg 104/69 absent unknown 15 145 absent 19-year-old 1 para 0 for OBI. Last period January 10, 2025. This gives EDC October 17, 2025. Patient had spotting for 2 days January 28. Complains of increased nausea and vomiting. She is taking vitamins. Patient denies leaking, denies bleeding, denies cramps OBI today. Derrick thomase appointment with Dr. Polo for MFM sono. OB panel with NIPT and AFP carrier screens today. I gave her prescription for Zofran 8 mg 3 times daily and a couple refills. And discussed comfort measures for nausea and vomiting and patient can continue prenatals. Discussed SAB precautions. 05/29/25 -?-?-?-?-?-?-?-?-?-?-?-?- 16w 3d 55.338 kg 107/72 absent unknown 18 145 active light FM, denies VB,LOF, No UC. continued Nausea, need refill aFP today. MFM pending. Discussed SAB precautions. Return in 4 weeks OB check. Refilled Zofran. Continue with prenatals 06/15/25 -?-?-?-?-?-?-?-?-?-?-?-?- 18w 6d 56.245 kg 109/72 absent unknown 18 145 active Of 34. Urine was clear and CHEM panel was normal. Sonogram showed a 18-week fetus on June 13. This corrects EDC to November 09, 2024 Discussed dates. MFM sono. Pending ETA every 2 hours. Increase proteins and increase iron foods. I gave her prescription for iron twice a day with vitamin C twice a day. Increase fluids. And return in 4 weeks OB check. AFP today 06/28/25 -?-?-?-?-?-?-?-?-?-?-?-?- 20w 5d 59.137 kg 108/69 absent unknown 20 156 active Maternal- medicine sono was faxed to Dr. Polo. Discussed dates. Discussed AFP. Patient reports light movement. Denies leaking, bleeding, cramps Maternal- medicine sono pending approval. Discussed labor precautions. Continue prenatals. Discussed labs. Return in 4 weeks OB check 07/26/25 -?-?-?-?-?-?-?-?-?-?-?-?- 24w 5d 59.931 kg 102/74 absent unknown 24 156 active No OB complaints. Reports good movement. Denies leaking, bleeding, contractions. Maternal- medicine schedule in 2 weeks. Discussed labor precautions. Ordered third trimester labs. Return in 4 weeks OB check 08/23/25 -?-?-?-?-?-?-?-?-?-?-?-?- 28w 5d 61.745 kg 108/74 absent cephalic 38 156 active No OB complaints. No leaking, bleeding, contractions. Reports good movement. 3-hour GTT today. Patient had her NST BPP [facility] today. Discussed labor precautions. I discussed GDM diet. Increase fluids. Return in 2 weeks OB check, refill pnv and iron BHUMI Calculator Estimated Delivery Date Method Current WG Current Estimate 11/10/25 Ultrasound #1 28w 5d Other Estimates 10/17/25 LMP (Certain) 32w 1d 11/10/25 Manual 28w 5d final bhumi: Notes Visit Date: 08/23/25 Last Updated by: Ritu Crawford CNM 3rd tri lab: 1 hr: 142, , rpr;;nr, 5.2 Visit Date: 06/28/25 Last Updated by: Ritu Crawford CNM 06/28: AFP- Visit Date: 06/15/25 Last Updated by: Ritu Crawford CNM 06/13: sono showed IUP 18w4. CEDC: 11/10/25 Visit Date: 05/29/25 Last Updated by: Ritu Crawford CNM OB panel: O+,abs-, rpr;;nr, rub imm, hbsag-, HV-, HC-, GC/CT-, ,SMA-, A1: 5.5, NIPT: BOY/-, Cf- Visit Date: 04/26/25 Last Updated by: Ritu Crawford CNM 19 yo . LMP: 01/10/25. EDC: 10/17/24GC/CT-,204, TSH-,A1: 5.4 Office Procedures OBC Clinic LOC & Office Proc's Nursing/Assessment Patient Status: Established Patient OB Clinic Nursing Assessment: Medication Reconciliation, Update PMH in EMR and Vital Signs OB Clinic Coordination of Care: Complex Care and Chronic Disease 1-5, Education Complex Pt/Fam, Consent,records obtained, informed consent, Lab and Imaging orders, Results/Orders obtained and Staff clarify orders Special Needs: Heart tones Established Patient Charge Established Patient Point Assignment: 140 Established Patient Point Charge: EP Level 4 (120-155) Assessment & Plan Diagnosis / Problem List (1) Encounter for supervision of high risk in third trimester, antepartum: Status: Acute Plan Discussed labor precautions. Discussed GDM diet. 3-hour GTT ordered. Increase activity. Patient had MFM appointment today. Return in 2 to 3 weeks OB check Additional Plan Follow Up: 3 Weeks (obc)
== END 2025-08-23 16:22 | disposition home or self-care (01) ==
LOC: HODSOBC 15:44
PROVIDERS: Supervising Provider Advanced Practice Midwife; Visit Provider Advanced Practice Midwife
DX: O09.93 Supervision of high risk pregnancy, unspecified, third trimester (principal); Z3A.28 28 weeks gestation of pregnancy
CPT/HCPCS: 99214; G0463